=== PATIENT | female | born 1970 | race Two or more races ===

== ENCOUNTER 2017-04-17 00:01 | Emergency (ER) | payer BC ==
[~2017-04-17] VITALS: Ht 152.4 cm; Wt 54.4 kg
--- NOTE | ~2017-04-17 | CT55 ---
[facility] A Service of [facility] & [facility] RADIOLOGY TEXT RESULTS PATIENT: ARIELLE HERMAN LOCATION: [employer] : [birth year] UNIT #: [id number] AGE: [address]: Jeancarlos Hickman SEX: F ORDER DR: [id number] [facility] [address] [place], [place] [address] [id number] E MR#: [id number] Acc #: [id number] NAME: ARIELLE HERMAN : 1970 SEX: F STUDY DATE/TIME: 04/17/2017 03:09 UNIT: [facility] [facility] ROOM: STUDY DESCRIPTION: CT Chest W Con Attending Physician: Jeancarlos Hickman P.A.-C. Ordering Physician: Jeancarlos Hickman P.A.-C. Primary Care Physician: Primary Care Physician No MEDICAL IMAGING REPORT This report is preliminary unless electronic signature is present EXAM Chest CT 04/17/2017 at 03:09 INDICATION Tingling on the right side for 2 days worsening today. Abnormal chest x-ray this evening showing a potential pleural-based mass on the right. TECHNIQUE Axial images were obtained through the chest following IV contrast administration. Multiplanar reformats were obtained. No comparison chest CT. This CT examination was performed with one or more of the following radiation dose reduction techniques: automatic exposure control, adjustment of mA and/or kV according to patient size, and iterative reconstruction. FINDINGS There is no adenopathy. No pericardial effusion. There is pleural thickening on both sides of the chest with some calcified pleural plaques noted on the right. There is also a trace amount of chronic-appearing pleural fluid at the right lung base. The lesion seen by chest x-ray is a thick calcified pleural plaque. There is some scarring in the right lung base accounting for apparent infiltrate on the chest x-ray today. There is atelectasis or scarring in the left lower lobe. No suspicious osseous lesions. There is a hemangioma in the T3 vertebral body. Continuation through the upper abdomen is unremarkable. IMPRESSION 1. There is pleural thickening on both sides of the chest, right greater than left. There is a trace amount of chronic pleural fluid at the right lung base. Also noted are calcified pleural plaques in the right hemithorax. The largest of these corresponds to the chest x-ray abnormality. This may reflect asbestos related pleural disease. [facility] A Service of [facility] RADIOLOGY TEXT RESULTS PATIENT: AREILLE HERMAN [id number] [birth year] UNIT #: [id number] AGE: [address]: Jeancarlos Hickman PAC SEX: F ORDER DR: Correlate with patient's history. 2. There is chronic scarring in the right base accounting for apparent infiltrate on the earlier chest x-ray. There is scarring or atelectasis in the left lower lobe as well. 3. No adenopathy. Dictated by... Omar Farrar Jr., M.D. THIS IS AN ELECTRONICALLY VERIFIED REPORT Omar Farrar Jr., M.D. at 04/17/2017 6:55 AM ELISABET/willie TD: 04/17/2017 05:59 JOB #: [id number] MEDICAL IMAGING REPORT Page 1 of 1 COPY
--- NOTE | ~2017-04-17 | CR63 ---
[facility] A Service of [facility] & [facility] RADIOLOGY TEXT RESULTS PATIENT: ARIELLE HERMAN LOCATION: [facility] : 66 UNIT #: [id number] AGE: [address]: Jeancarlos Hickman SEX: F ORDER DR: [id number] [facility] [address] [place], [place] [address] [id number] E MR#: [id number] Acc #: [id number] NAME: ARIELLE HERMAN : 1970 SEX: F STUDY DATE/TIME: 04/17/2017 01:22 UNIT: [facility] ROOM: STUDY DESCRIPTION: CR Chest 2 View Attending Physician: Jeancarlos Hickman P.A.-C. Ordering Physician: Jeancarlos Hickman P.A.-C. Primary Care Physician: Primary Care Physician No MEDICAL IMAGING REPORT This report is preliminary unless electronic signature is present EXAM Chest x-ray, 04/17 at 01:22 INDICATIONS Cough, weakness, fatigue and upper back pain for 3 days. FINDINGS Two views of the chest were obtained. No comparison. There is borderline cardiac enlargement. There is a potential pleural-based mass versus a rib lesion in the right upper hemithorax. There is some pleural thickening at the right apex. There is a small amount of right side pleural fluid. There is some infiltrate in the right base, which could reflect pneumonia. Left lung is clear. There is no pneumothorax. IMPRESSION Pleural-based mass versus rib-based lesion in the right upper hemithorax. There is also some pleural thickening on the right at the apex. Additionally, there is a small right effusion and there is some right base infiltrate concerning for pneumonia. Consider followup chest CT. Heart size is borderline enlarged. Dictated by... Omar Farrar Jr., M.D. THIS IS AN ELECTRONICALLY VERIFIED REPORT Omar Farrar Jr., M.D. at 04/17/2017 6:54 AM CORINNEK/mahogany TD: 04/17/2017 02:22 JOB #: [id number] MEDICAL IMAGING REPORT [facility] A Service of [facility] & [facility] RADIOLOGY TEXT RESULTS PATIENT: [facility]EL[facility] HERMAN [id number] [birth year] UNIT #: [id number] AGE: [address]: Jeancarlos Hickman PAC SEX: F ORDER DR: Page 1 of 1 COPY
[2017-04-17 02:11] LABS: BASOPHIL% 0.6 % (0-2.5); DIFF IND NO; EOSINOPHIL# 0.1 X10e3 (0-0.7); EOSINOPHIL% 1.8 % (0.0-7.0); HEMATOCRIT 40.1 % (35.0-45.0); HEMOGLOBIN 13.1 gm/dL (12.0-16.0); LYMPHOCYTE# 2.3 X10e3 (1.0-3.5); LYMPHOCYTE% 35.8 % (17.0-45.0); MEAN CELL VOLUME 90.9 FL (83-96); MEAN CORPUSCULAR HEMOGLOBIN 29.8 PG (28-34); MEAN CORPUSCULAR HGB CONC 32.7 g/dL (30-36); MEAN PLATELET VOLUME 7.8 FL (6.5-11.5); MONOCYTE# 0.5 X10e3 (0-1.0); MONOCYTE% 8.6 % (3.0-12.0); NEUTROPHIL# 3.4 X10e3 (1.5-7.1); NEUTROPHIL% 53.2 % (40-75); PLATELET COUNT 275 X10e3 (140-420); RED BLOOD COUNT 4.41 X10e (3.90-5.30); WHITE BLOOD COUNT 6.4 X10e3 (4.0-10.5)
[2017-04-17 02:38] LABS: BILIRUBIN, DIRECT 0.1 mg/dL (0.0-0.2); BILIRUBIN,INDIRECT 0.8 mg/dL (0.0-0.9); BILIRUBIN,TOTAL 0.9 mg/dL (0.2-2.0); BUN/CREATININE RATIO 15.71; CALCIUM SERUM 8.6 mg/dL (8.4-10.2); CREATININE SERUM 0.7 mg/dL (0.6-1.4); GLOM FILT RATE Estimated 102.5 mL/min (>60); POTASSIUM 3.9 mmol/L (3.5-5.1); PROTEIN TOTAL SERUM 6.5 g/dL (6.0-8.3)
[2017-04-17 03:46] LABS: URINE SOURCE CLEAN CATCH
[2017-04-17 03:51] LABS: URINE APPEARANCE CLEAR; URINE BILIRUBIN NEG (NEG); URINE BLOOD NEG (NEG); URINE COLOR YELLOW; URINE GLUCOSE NEG (NEG); URINE KETONE NEG (NEG); URINE LEUKOCYTE ESTERASE NEG (NEG); URINE NITRATE NEG (NEG); URINE PH 6.5 (5-8); URINE PROTEIN NEG (NEG); URINE SPECIFIC GRAVITY 1.033 (1.003-1.035); URINE UROBILINOGEN 0.2 MG/DL (NEG)
[2017-04-17 04:09] LABS: CULTURE INDICATED? NO
== END 2017-04-17 04:36 | disposition home or self-care (01) ==
LOC: CED 00:01
PROVIDERS: Physician Assistant
DX: M25.50 Pain in unspecified joint (principal); M54.9 Dorsalgia, unspecified; R51 Headache
CPT/HCPCS: 36415; 71020; 71260; 80048; 80076; 81003; 82550; 85025; 85652; 86140; 96361; 96374; 96375; 99284; J1885; J2405; Q9967